=== PATIENT | male | born 1990 | race African-American/Black ===

== ENCOUNTER 2023-02-18 17:01 | Inpatient (IN) | payer OTHER ==
[~2023-02-18] VITALS: Ht 180.3 cm; Wt 104.6 kg
[2023-02-18 18:09] LABS: HEMATOCRIT 46.6 % (42.0-52.0); HEMOGLOBIN 15.4 g/dl (13.5-17.5); MEAN CORPUSCULAR HEMOGLOBIN 30.4 pg (27.0-33.0); MEAN CORPUSCULAR VOLUME 92.1 fl (80.0-96.0); PLATELET COUNT, AUTOMATED 243 10^3/uL (150-450); RED BLOOD COUNT 5.06 10^6/uL (4.30-6.10); WHITE BLOOD COUNT 5.2 10^3/uL (4.0-10.0)
[2023-02-18 18:26] LABS: AMPHETAMINES LEVEL URINE NEGATIVE (NEGATIVE); BARBITURATES URINE NEGATIVE (NEGATIVE); BENZODIAZEPINES URINE NEGATIVE (NEGATIVE); CANNABINOIDS URINE NEGATIVE (NEGATIVE); COCAINE METABOLITE URINE NEGATIVE (NEGATIVE); METHADONE URINE NEGATIVE (NEGATIVE); OPIATES URINE NEGATIVE (NEGATIVE); PHENCYCLIDINE URINE NEGATIVE (NEGATIVE)
[2023-02-18 18:30] LABS: ETHYL ALCOHOL (ETHANOL) < 0.003 % (0.000-0.010)
[2023-02-18 18:31] LABS: ALBUMIN 4.4 G/DL (3.2-5.2); ALKALINE PHOSPHATASE 61 U/L (46-116); ALT/SGPT 37 U/L (7.0-40); AST/SGOT 24 U/L (<34); BILIRUBIN,DIRECT 0.2 MG/DL (<0.4); BILIRUBIN,TOTAL 0.6 MG/DL (0.3-1.2); BLOOD UREA NITROGEN 15 MG/DL (9-23); CALCIUM LEVEL 9.5 MG/DL (8.5-10.1); CARBON DIOXIDE LEVEL 30 MMOL/L (20-31); CHLORIDE LEVEL 103 MMOL/L (98-107); CREATININE FOR GFR 1.18 MG/DL (0.70-1.30); GLOMERULAR FILTRATION RATE > 60.0 (>60); GLUCOSE, FASTING 97 MG/DL (60-100); POTASSIUM SERUM 4.1 MMOL/L (3.5-5.1); SALICYLATE LEVEL < 3.0 MG/DL (<30); SODIUM LEVEL 140 MMOL/L (136-145); TOTAL PROTEIN 7.9 G/DL (5.7-8.2)
[2023-02-18 18:32] LABS: THYROID STIMULATING HORMONE 1.701 uIU/ML (0.55-4.78)
[2023-02-18] MEDS ORDERED: MAALOX 30 ML SUSP *UDC PO PRN ×2 (20:55)
[2023-02-18] MEDS ORDERED: IBUPROFEN 400MG TAB PO PRN ×2 (20:55)
[2023-02-18] MEDS ORDERED: ACETAMINOPHEN TAB 650MG DOSE (2X325MG) PO PRN ×2 (20:55)
[2023-02-18] MEDS ORDERED: MOM 30ML SUSPENSION UDC PO PRN ×2 (20:55)
[2023-02-18] MEDS ORDERED: traZODone 50 MG TAB PO PRN ×2 (20:55)
[2023-02-18] MEDS ORDERED: diphenhydrAMINE 25MG CAP PO PRN ×2 (20:55)
[2023-02-18] MEDS ORDERED: OMEG10002 PO (21:49)
[2023-02-18] MEDS ORDERED: HOME MED LIST COMPLETE! XX SCH (21:50)
[2023-02-19 00:25] VITALS: BP 138/68; TEMP 97.9; O2SAT 100
[2023-02-19 06:29] VITALS: BP 125/80; TEMP 98.7; O2SAT 100
[2023-02-20 06:39] VITALS: BP 154/67; TEMP 96.5; O2SAT 96
[2023-02-21 06:10] VITALS: BP 115/62; TEMP 97.6; O2SAT 100
[2023-02-21 18:00] VITALS: BP 118/68; TEMP 97.3; O2SAT 98
[2023-02-22 06:32] VITALS: BP 166/71; TEMP 98.3; O2SAT 100
[2023-02-22 17:00] VITALS: BP 140/78; TEMP 96.4
[2023-02-23 06:32] VITALS: BP 146/65; TEMP 97.9; O2SAT 100
[2023-02-24 06:45] VITALS: BP 128/61; TEMP 97.8; O2SAT 97
[2023-02-24 08:58] VITALS: BP 128/61; TEMP 97.8; O2SAT 97
[2023-02-25 05:24] VITALS: BP 132/62; TEMP 97.7; O2SAT 99
== END 2023-02-25 13:12 | disposition home or self-care (01) | DRG 885 ==
LOC: M ED 17:01 → M ED INP 20:57 → M PSY 23:31
PROVIDERS: ADMIT Student in an Organized Health Care Education/Training Program; ATTEND Student in an Organized Health Care Education/Training Program
DX: F39 Unspecified mood [affective] disorder (principal)